=== PATIENT | male | born 1995 | race Asian ===

== ENCOUNTER 2017-10-17 19:15 | Emergency (ER) | payer OTHER ==
[~2017-10-17] VITALS: Ht 191 cm; Wt 100.0 kg
[~2017-10-17 19:15] MED LIST: ANTIVERT 25MG25 MG PO
[2017-10-17 19:31] VITALS: BP 137/91; PULSE 78; TEMP 99.2
== END 2017-10-17 21:40 | disposition home or self-care (01) ==
LOC: COL.ER 19:15
DX: H53.8 Other visual disturbances (principal); H04.121 Dry eye syndrome of right lacrimal gland; Z98.890 Other specified postprocedural states